=== PATIENT | male | born 1945 ===

== ENCOUNTER 2018-09-07 15:24 | Inpatient (IN) | payer MEDICARE, OTHER ==
--- OUTSIDE RECORDS SUMMARY | 2018-09-07 15:36 | XMS REPORT | Continuity of Care Document ---
:1945 Author Organization [facility] Care Team Providers Name Role Phone ASHLEY AYERS Primary Care Physician Allergies and Intolerances No Known Allergies Medications RxNorm Medication Dose Route Instructions Start End Status Date Date Amlodipine Oral 2.5 mg oral orally every Active day 2418 Cholecalciferol 1000 oral orally every Active unit day ( administer with meals) 91268 ferrous sulfate 325 mg oral orally every Active day (Ordered Dose: of ferrous sulfate) 5487 Hydrochlorothiazide 6.25 - oral orally every Active 12.5 mg day 17662 latanoprost 1 drp ophthalmic into the eye(s) Active (eye) every day (both eyes) 872664 Pravastatin Sodium 40 40 mg oral orally every Active MG Oral Tablet day 829876 Warfarin Sodium 5 MG 2.5 mg oral orally twice a Active Oral Tablet week (Friday and Friday) 784061 Warfarin Sodium 5 MG 5 mg oral orally 5 times Active Oral Tablet per week (Friday, Friday, , and Friday) Problems Code Code System Problem Name Start Date End Date Status 31581058 SNOMED-CT Spinal stenosis of lumbar region 2011 Active LUMBAR FUSION L4/L5 2011 Active 957535014 SNOMED-CT Deep venous thrombosis of lower 2005 Active extremity (disorder) 53408295 SNOMED-CT Hiatal hernia 1994 Active 12779492 SNOMED-CT Hypertensive disorder 1994 Active Procedures No data in the system Results Radiology Results Order: MRI LUMBAR W/O CONTRASTExam Completion Date:08/11/2018 13:145/10/2018 2:17 PM MR LUMBOSACRAL SPINE WITHOUT CONTRAST CLINICAL INFORMATION: Lumbar spine ankylosis,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 TECHNIQUE: Multiplanar multi-sequence MR imaging of the lumbosacral spine was performed without intravenous contrast. FINDINGS: All the lumbar vertebrae are well aligned. Hardware fixation of L4 and L5 vertebral bodies noted. Degenerative changes are noted in the form of marginal osteophytes at multiple levels. Endplate changes are noted with small Schmorl nodes especially at the lower end plate of L2 and L3 vertebral body. T12-L1 intervertebral disc is unremarkable. L1-L2 intervertebral disc is unremarkable. L2-3 intervertebral disc shows mild posterior disc bulge with facetal and ligamentum flavum hypertrophy causing mild canal narrowing and mild to moderate narrowing of bilateral neuroforamina. L3-L4 intervertebral disc shows mild posterior disc bulge with facetal and ligamentum flavum hypertrophy causing moderate to severe canal narrowing and moderate to severe narrowing of bilateral neuroforamina. L4-5 intervertebral disc is fixed. L5-S1 intervertebral disc level shows posterior disc bulge with facetal hypertrophy causing moderate canal narrowing and moderate to severe bilateral neuroforamina narrowing. Pre and paravertebral soft tissues are unremarkable. IMPRESSION: Findings are suggestive of status post fixation of L4 and L5 vertebral body with degenerative changes causing moderate to severe canal narrowing at L3-4 level and moderate canal narrowing at L5-S1 level. END OF IMPRESSION [facility] submits Radiology results to [facility] then provides those same results to [facility]. All results are available to [facility] and [facility] provider portal users. [facility] DICOM images are available to the [facility] provider portal users only. [facility] DICOM images are not available to the [facility] provider portal users. There is no current [facility] cross-[facility] functionality allowing images to be available through the [facility] to [facility] connectivity. Electronically signed By: Marco Bruner M.D. Read By: MARCO BRUNER Date: 08/11/2018 14:45 Social History Code Code System Social History Observation Description Dates Observed 049500535 SNOMED CT Current Smoking Status Never smoker UNK AdministrativeGender Sex Assigned At Unknown Vital Signs No data in the system Goals Section No data in the system Health Concerns No data in the systemEncounter Diagnosis Date Code Code System Diagnosis Status M54.5 ICD10 LOW BACK PAIN Active Advance Directives *RHIO - CONSENT IS YES Directive Type Effective Date Drill Sharpener Notes Supporting Document Name Address Phone No Directive Type 11/10/2014 9:51:46 Not Specified Not Specified Not Specified None No specified PM Family History No data in the system Functional Status No data in the system Immunizations No data in the system Medical Equipment Implants Implanted Date Implant Site [facility] 04/07/2011 titanium spinal implantsx4 lumbar Mental Status No data in the system Assessment and Plan Assessments No data in the systemPlan Of Treatment No data in the systemPending Tests No data in the system Hospital Discharge Instructions No data in the system Reason for Visit Reason for Visit MRI
--- OUTSIDE RECORDS SUMMARY | 2018-09-07 15:36 | XMS REPORT | Continuity of Care Document ---
:1945 External Reference #:[id number] Author Name Robinsonnora Aurelia Care Team Providers Name Role Phone Mare Marin NP Primary Care Physician Unavailable Payers Date Identification Numbers Payment Provider Subscriber Effective: Policy Number: [id number] Medicare Alexis Alexis 2009 PayID: [id number] [address] [place] [address] Expires: 2015 Policy Number: [id number] [employer] Alexis Coleacheshannon Group Number: [id number] PayID: [place] [address] Policy Number: [id number] Lifetime Benefit Solution Franchesca Alexis PayID: [id number] [address] [place] [address] Problems Active Problems Provider Date Lumbosacral stenosis Giovanna Medina M.D. Onset: 09/26/2015 Note: post surgery with residual right leg numbness Family History Date Family Member(s) Observation Comments General Diabetes General Congestive Heart Failure (CHF) Siblings 1 Social History Type Date Description Comments Sex Unknown Marital Status Occupation Retired Teacher [employer] ETOH Use Drinks Alcoholic Beverages Rarely Tobacco Use Start: Unknown Patient has never smoked Recreational Drug Use Denies Drug Use Smoking Status Reviewed: 08/24/18 Patient has never smoked Exercise Type/Frequency Exercises regularly Allergies, Adverse Reactions, Alerts Description No Known Drug Allergies Medications Active Medications SIG Qnty Indications Ordering Date Provider Amlodipine Besylate 1 po once daily Kimberley Chavarria 2.5mg Tablets Hydrochlorothiazide 1/2 by mouth Kimberley Chavarria 12.5mg Tablets once daily Latanoprost as directed Lluvia, 0.005% Solution MD Jessica Pravastatin Sodium 1 po qd Kimberley Chavarria Caryn 40mg Tablets Warfarin Sodium 1 po 6 days a Kimberley Chavarria 5mg Tablets week..2/12 mg on the 7th day Vitamin D3 High Potency 1 by mouth Unknown 1000Unit every day Capsules Nexium 1 by mouth Unknown 20mg Capsules DR every day Iron 65 mg every 2 Unknown 90(18Fe) mg Tablets days Vital Signs Date Vital Result Comment 08/24/2018 10:01am Height 68 inches 5'8" Weight 180.00 lb BP Systolic Sitting 120 mmHg BP Diastolic Sitting 60 mmHg Pain Level 4 BMI (Body Mass Index) 27.4 kg/m2 09/26/2015 1:04pm Height 68 inches 5'8" Weight 193.00 lb Heart Rate 60 /min BP Systolic Sitting 120 mmHg BP Diastolic Sitting 80 mmHg BMI (Body Mass Index) 29.3 kg/m2 Procedures Date Code Description Status 09/26/2015 44388 Nerve Conduction 05-06 Studies Completed 09/26/2015 81464 Needle Electromyography Each Extremity W/Related Completed Paraspinal Areas Encounters Type Date Location Provider Dx Diagnosis Office Visit 08/24/2018 Neurosurgery Shaq Salinas, M48.062 Spinal stenosis, 10:30a [facility] lumbar region with neurogenic claudication M51.36 Other intervertebral disc degeneration, lumbar region Office Visit 02/22/2011 Neurosurgery Julio Cesar Nichols 724.02 Spinal Stenosis, 10:00a [facility] M.D. Lumbar Region, W/O Neurogenic Claudication 724.6 Sacral Disorder Plan of Treatment Future Appointment(s):09/04/2018 3:00 pm - Crystal [facility]vel MD [facility]08/24/2018 - Shaq Salinas M.D.M48.062 Spinal stenosis, lumbar region with neurogenic claudicationNew Xrays:Spine Scoliosis Erect, Ordered: 08/24/18Spine Lumbosacral Bending Views Only 2 Or 3 Views, Ordered: 08/24/18CT Spine Lumbar W/O, Ordered: 08/24/18New Therapy:Physical NzjibflE52.36 Other intervertebral disc degeneration, lumbar regionNew Therapy: Physical TherapyFollow up:Please schedule follow up with Dr. Jovel for surgical consult
--- OUTSIDE RECORDS SUMMARY | 2018-09-07 15:36 | XMS REPORT | Continuity of Care Document ---
:1945 External Reference #:[id number] Author Name Cindy Melvin Care Team Providers Name Role Phone Mare Marin, CLOUD SOFTWARE ENGINEER Primary Care Physician Unavailable Payers Date Identification Numbers Payment Provider Subscriber Policy Number: [id number] Medicare Alexis Houstonermacher PayID: [id number] [address] [place] [address] Effective: 2009 Policy Number: [id number] Medicare Alexis Houstonermrg Expires: 2018 PayID: [id number] [address] [place] [address] Expires: 2015 Policy Number: [id number] [employer] Lee Fenstermacher Group Number: [id number] PayID: [place] [address] Policy Number: [id number] Lifetime Benefit Solution Franchesca Alexis PayID: EBSRM [address] [place] [address] Problems Active Problems Provider Date Lumbosacral stenosis [...] Use Denies Drug Use Smoking Status Reviewed: 08/28/18 Patient has never smoked Exercise Type/Frequency Exercises regularly Allergies, Adverse Reactions, Alerts Description No Known Drug Allergies Medications Active Medications SIG Qnty Indications Ordering Date Provider Amlodipine Besylate 1 po once daily Kimberley Chavarria Caryn 2.5mg Tablets Hydrochlorothiazide 1/2 by mouth Kimberley Chavarria 12.5mg Tablets once daily Latanoprost as directed Lluvia, 0.005% Solution MD Jessica Pravastatin Sodium 1 po qd Kimberley Chavarria Caryn 40mg Tablets Warfarin Sodium 1 po 6 days a Kimberley Chavarria Caryn 5mg Tablets week..2/12 mg on the 7th day Vitamin D3 High Potency 1 by mouth Unknown 1000Unit every day Capsules Nexium 1 by mouth Unknown 20mg Capsules DR every day Iron 65 mg every 2 Unknown 90(18Fe) mg Tablets days Vital Signs Date Vital Result Comment 08/28/2018 1:50pm Height 68 inches 5'8" Weight 180.00 lb BP Systolic Sitting 160 mmHg BP Diastolic Sitting 100 mmHg Pain Level 9 BMI (Body Mass Index) 27.4 kg/m2 08/24/2018 10:01am Height 68 inches 5'8" Weight 180.00 lb BP Systolic Sitting 120 mmHg BP Diastolic Sitting 60 mmHg Pain Level 4 BMI (Body Mass Index) 27.4 kg/m2 09/26/2015 1:04pm Height 68 inches 5'8" Weight 193.00 lb Heart Rate 60 /min BP Systolic Sitting 120 mmHg BP Diastolic Sitting 80 mmHg BMI (Body Mass Index) 29.3 kg/m2 Procedures Date Code Description Status 09/26/2015 20482 Nerve Conduction 05-06 Studies Completed 09/26/2015 45486 Needle Electromyography Each Extremity W/Related Completed Paraspinal Areas Encounters Type Date Location Provider Dx Diagnosis Office Visit 08/28/2018 Neurosurgery Vassilios M48.062 Spinal stenosis, 2:00p [facility] MD lumbar region with neurogenic claudication M51.36 Other intervertebral disc degeneration, lumbar region Office Visit 02/22/2011 Neurosurgery Julio Cesar Nichols 724.02 Spinal Stenosis, 10:00a [facility] M.D. Lumbar Region, W/O Neurogenic Claudication 724.6 Sacral Disorder Plan of Treatment Future Appointment(s):10/07/2018 3:00 pm - Crystal Jovel MD at [facility]08/28/2018 - Crystal Jovel, MDM48.062 Spinal stenosis, lumbar region with neurogenic claudicationReferral:Terrell Serra MD , Interventional Pain MedicFollow up:Rv in 1 pkutlM73.36 Other intervertebral disc degeneration, lumbar region
[2018-09-07] MEDS ORDERED: predniSONE TAB* 20 MG PO ONE (16:11)
[2018-09-07] MEDS ORDERED: Diazepam TAB(*) 5 MG PO ONE (16:11)
--- NOTE | 2018-09-07 16:48 | ED ---
Back Pain - HPI Summary HPI Summary: Patient complains of worsening of chronic back pain symptoms, stating he cannot stand or walk 2 days. Patient has Rx for tramadol which providing no relief. Patient of Dr. Romero. Denies acute trauma, fever, cough, sore throat, CV, SOB, N/V/D, abdominal pain, change in urine, change in BM. - History of Current Complaint Chief Complaint: EDBackInjuryPain Stated Complaint: BACK PAIN Time Seen by Provider: 09/07/18 15:40 Hx Obtained From: Patient Onset/Duration: Sudden Onset, Lasting Days Onset/Duration: Started Days Ago Timing: Constant Severity Initially: Severe Severity Currently: Severe Pain Intensity: 9 Pain Scale Used: 0-10 Numeric Character: Aching, Throbbing Aggravating Symptom(s): Movement, Walking Alleviating Symptom(s): Rest, Position Associated Signs And Symptoms: Positive: Negative - Allergies/Home Medications Allergies/Adverse Reactions: Allergies Allergy/AdvReac Type Severity Reaction Status Date / Time No Known Allergies Allergy Verified 09/07/18 15:33 Home Medications: Home Medications Amlodipine Besylate [Amlodipine 2.5 mg tab] 2.5 mg PO DAILY 09/07/18 [History Confirmed 09/07/18] Cholecalciferol (Vitamin D3) [D 1000] 1,000 unit PO DAILY 09/07/18 [History Confirmed 09/07/18] Esomeprazole Magnesium [Nexium 24Hr] 20 mg PO DAILY 09/07/18 [History Confirmed 09/07/18] Hydrochlorothiazide TAB* [Hydrodiuril TAB*] 12.5 mg PO DAILY 09/07/18 [History Confirmed 09/07/18] Iron,Carbonyl/Ascorbic Acid [Iron 100/C] 1 tab PO DAILY 09/07/18 [History Confirmed 09/07/18] Latanoprost 0.005% Eye Drop 1 drop BOTH EYES DAILY 09/07/18 [History Confirmed 09/07/18] Pravastatin Sodium 40 mg PO DAILY 09/07/18 [History Confirmed 09/07/18] Warfarin TAB(*) [Coumadin TAB(*)] 2.5 mg PO MOWEFRSA 09/07/18 [History Confirmed 09/07/18] Warfarin TAB(*) [Coumadin TAB(*)] 5 mg PO DAILY 09/07/18 [History Confirmed 06/23] PMH/Surg Hx/FS Hx/Imm Hx Endocrine/Hematology History: Reports: Hx Anticoagulant Therapy Cardiovascular History: Denies: Hx Pacemaker/ICD History: Denies: Hx Dialysis Sensory History: Denies: Hx Eye Prosthesis Opthamlomology History: Denies: Hx Legally Blind EENT History: Denies: Hx Deafness Neurological History: Denies: Hx Dementia Psychiatric History: Denies: Hx Autism - Surgical History Surgery Procedure, Year, and Place: LSP SURGERY Infectious Disease History: No Infectious Disease History: Denies: Traveled Outside the [place] in Last 30 Days - Family History Known Family History: Positive: Non-Contributory - Social History Alcohol Use: None Substance Use Type: Reports: None Smoking Status (MU): Never Smoked Tobacco Review of Systems Constitutional: Negative Eyes: Negative ENT: Negative Cardiovascular: Negative Respiratory: Negative Gastrointestinal: Negative Genitourinary: Negative Musculoskeletal: Other Skin: Negative Neurological: Negative Psychological: Normal All Other Systems Reviewed And Are Negative: Yes Physical Exam - Summary Physical Exam Summary: Tenderness to palpation over the left gluteus. PMS intact distally in left lower extremity. No masses, erythema, ecchymosis, deformity, swelling noted to lower back or left extremity. Triage Information Reviewed: Yes Vital Signs On Initial Exam: Initial Vitals Temp Pulse Resp BP Pulse Ox 98.2 F 59 16 176/103 98 09/07/18 15:29 09/07/18 15:29 09/07/18 15:29 09/07/18 15:29 09/07/18 15:29 Vital Signs Reviewed: Yes Appearance: Positive: Well-Appearing Skin: Positive: Warm Head/Face: Positive: Normal Head/Face Inspection Eyes: Positive: Normal Neck: Positive: Supple Respiratory/Lung Sounds: Positive: Clear to Auscultation Cardiovascular: Positive: Normal Abdomen Description: Positive: Nontender Musculoskeletal: Positive: Normal Neurological: Positive: Normal Psychiatric: Positive: Normal AVPU Assessment: Alert - [place] Coma Scale Best Eye Response: 4 - Spontaneous Best Motor Response: 6 - Obeys Commands Best Verbal Response: 5 - Oriented Coma Scale Total: 15 Diagnostics - Vital Signs Vital Signs Temp Pulse Resp BP Pulse Ox 09/07/18 15:29 98.2 F 59 16 176/103 98 - Laboratory Result Diagrams: 09/07/18 17:24 09/07/18 17:24 Lab Statement: Any lab studies that have been ordered have been reviewed, and results considered in the medical decision making process. Back Pain Course/Dx - Course Course Of Treatment: Patient complains of worsening of chronic back pain symptoms, stating he cannot stand or walk 2 days. Patient has Rx for tramadol which providing no relief. Patient of Dr. Romero. Denies acute trauma, fever, cough, sore throat, CV, SOB, N/V/D, abdominal pain, change in urine, change in BM. Physical exam:Tenderness to palpation over the left gluteus. PMS intact distally in left lower extremity. No masses, erythema, ecchymosis, deformity, swelling noted to lower back or left extremity. Vital signs within normal limits. Lumbar x-ray negative for acute process. Patient admitted to hospital as per recommendation of neurosurgery Dr. Salinas. - Diagnoses Provider Diagnoses: Back pain, Unable to ambulate Discharge - Sign-Out/Discharge Documenting (check all that apply): Patient Departure Patient Received Moderate/Deep Sedation with Procedure: No - Discharge Plan Condition: Fair Disposition: ADMITTED TO [facility] - Billing Disposition and Condition Condition: FAIR Disposition: Admitted to [facility]
[2018-09-07] MEDS ORDERED: oxyCODONE TAB* 5 MG TAB PO ONE (17:07)
[2018-09-07 17:34] LABS: ABS Lymphocytes 1.5 10^3/ul (1.0-4.8); ABS Monocytes 0.5 10^3/ul (0-0.8); ABS Neutrophils 5.8 10^3/ul (1.5-7.7); Eosinophil % 0.3 %; Hematocrit 44 % (42-52); Lymphocyte % 18.4 %; Mean Corpuscular HGB Conc 34 g/dL (31-36); Mean Corpuscular Hemoglobin 30 pg (27-31); Mean Corpuscular Volume 87 fL (80-94); Mean Platelet Volume 7.3 fL (7.4-10.4); Platelet Count 242 10^3/uL (150-450); Red Blood Count 5.01 10^6 /uL (4.18-5.48); Red Cell Distribution Width 14 % (10.5-15); White Blood Count 7.9 10^3/uL (3.5-10.8)
[2018-09-07 17:47] LABS: INR 1.86 (0.82-1.09)
[2018-09-07 17:51] LABS: Albumin 4.3 g/dL (3.2-5.2); Albumin/Globulin Ratio 1.2 (1-3); C Reactive Protein 4.39 mg/L (<8.01); Calcium 9.6 mg/dL (8.6-10.3); Globulin 3.5 g/dL (2-4); Potassium 3.9 mmol/L (3.5-5.0); Total Bilirubin 0.7 mg/dL (0.2-1.0); Total Protein 7.8 g/dL (6.4-8.9)
[2018-09-07] MEDS ORDERED: Morphine INJ* 2 MG/ML 1 ML SYRINGE (TWO MG - NEW SYRINGE VERSION) IV PRN (18:00)
[2018-09-07 18:32] LABS: BUN/Creatinine Ratio 14.7 (8-20); EGFR African American 74.5 (>60); EGFR Non-African American 61.5 (>60)
[2018-09-07] MEDS ORDERED: Enoxaparin(*) 80 MG/0.8 ML SYR SUBCUT SCH (19:00)
[2018-09-07] MEDS ORDERED: hydrALAZINE IV* 20 MG/ML VIAL IV SLOW PU PRN (19:04)
--- NOTE | 2018-09-07 20:28 | HP ---
CC: Dr. Hernandez * HISTORY AND PHYSICAL: DATE OF ADMISSION: 09/07/18 PRIMARY CARE PROVIDER: Dr. Hernandez. NEUROSURGEON: Dr. Jovel. CHIEF COMPLAINT: Low back pain. HISTORY OF PRESENT ILLNESS: Mr. Alexis is a 73-year-old male who has a known history of spinal stenosis who was seen by Dr. Jovel on 08/28/18 where he was evaluated for his increased abdominal pain. The patient was referred to Dr. Serra for pain management. Since the patient's appointment on 08/28/18, he has had progressive pain in his low back radiating down to his left leg. It has progressed to the point where he is now unable to get out of bed. Due to the fact that the pain has become so severe and he is unable to ambulate, the patient was brought to the emergency room for evaluation. The patient has a history of spinal fusion at L4-5 approximately 7 years ago. He initially did quite well. However, pain started to worsen in fall. While in the ER, Dr. Salinas, who was on-call, was contacted. He recommended the patient be admitted for pain control and evaluation in the hospital by Dr. Jovel. It is felt that he likely will need surgery this admission. PAST MEDICAL HISTORY: 1. Hypertension. 2. Hyperlipidemia. 3. GERD. 4. DVT x2, on lifelong Coumadin. 5. BPH. PAST SURGICAL HISTORY: 1. Lumbar fusion. 2. Cholecystectomy. MEDICATIONS: 1. Vitamin D 1000 units p.o. daily. 2. Iron - vitamin C tablet 1 tab p.o. daily. 3. Coumadin 5 mg all days of the week in addition to 2.5 mg p.o. Friday, Friday, Friday and Friday. 4. Amlodipine 2.5 mg p.o. daily. 5. Nexium 20 mg p.o. daily. 6. Hydrochlorothiazide 12.5 mg p.o. daily. 7. Latanoprost 1 drop to both eyes daily. 8. Pravastatin 40 mg p.o. daily. ALLERGIES: No known drug allergies. FAMILY HISTORY: Mom at age of 82 with CHF. Dad at the age of 82 of CHF. He also had diabetes. SOCIAL HISTORY: The patient is a non-smoker. He drinks alcohol on a rare occasion. 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 He is . He has 2 children. His and his daughter would be his health care proxy. REVIEW OF SYSTEMS: A complete 11 system review of systems is obtained. Pertinent positives and negatives are as per HPI and otherwise negative. PHYSICAL EXAMINATION GENERAL: The patient is a well-developed elderly male who appears younger than his stated age, lying flat in the bed, in no acute distress. VITAL SIGNS: Blood pressure 165/111, pulse 56, respirations 18, temp 97.5, O2 sat 97% on room air. HEENT: Pupils are equal, round. Extraocular muscles are intact. Oropharynx is clear. Oral mucosa is moist. There is no submandibular, cervical or supraclavicular adenopathy. PULMONARY: Lungs are clear to auscultation anteriorly. CARDIAC: Normal S1, S2. Regular rate and rhythm. I did not appreciate any murmurs. There is no lower extremity edema. ABDOMEN: Bowel sounds are present. Abdomen is soft, nontender, nondistended. MUSCULOSKELETAL: Range of motion is not tested today due to pain. NEURO: Cranial nerves II through XII are grossly intact. Sensation is intact to light touch throughout. Strength is normal in the upper extremities, slight weakness in the left lower extremity. PSYCH: The patient is alert. He is oriented x3. Affect appears appropriate. DIAGNOSTIC STUDIES/LAB DATA: WBC 7.9, hemoglobin 15.0, hematocrit 44, platelets 242, INR 1.86. Sodium 138, potassium 3.9, chloride of 103, CO2 28, BUN 17, creatinine 1.16, glucose 116, lactic acid 1.5, calcium 9.6, bilirubin 0.7, AST 21, ALT 16, alk phos 83, CRP 4.39, albumin 4.3. Lumbar spine x-ray reveals stable appearance of the post fusion L4-L5 level. There is diffuse degenerative spondylosis and facet joint osteoarthritis. ASSESSMENT AND PLAN: Mr. Alexis is a 73-year-old male with a history of intractable low back pain, now with the inability to ambulate who is being admitted to the hospital for pain control and evaluation by Dr. Jovel for likely lumbar spine surgery this week. 1. Intractable back pain. At this point, the patient is fairly comfortable lying flat in the stretcher. He is unable to however move without significant difficulty. The patient will have p.r.n. Tylenol and oxycodone as well as IV morphine for severe pain. A consultation has been placed to Dr. Jovel. Dr. Salinas has already spoken to Dr. Jovel today. The patient did receive a dose of prednisone in the emergency room. 2. Hypertension. The patient's blood pressure is under poor control at this time. I suspect this may be related to pain. The patient for now will continue on his usual doses of amlodipine, and hydrochlorothiazide. I will add p.r.n. hydralazine for systolic blood pressures greater than 170. 3. Hyperlipidemia. Continue statin. 4. Deep vein thrombosis x2. The patient has been placed on lifelong Coumadin therapy. His INR is subtherapeutic 1.86. As there is likelihood that the patient will go to the OR this week, I will hold his Coumadin and initiate Lovenox 80 mg subcutaneous twice daily. 5. DVT prophylaxis. According to the Adult Thrombosis Prophylaxis Risk Factor Assessment Guide, the patient has a total risk factor score of 5, making him the highest risk. Therapeutic dose Lovenox is being ordered while the patient is off his Coumadin given his history of recurrent deep vein thromboses and this will act as his DVT prophylaxis. Code status is full. TIME SPENT: 55 minutes was spent admitting this patient. [id number]/[facility] #: [id number] BERNIE
[2018-09-07] MEDS: amLODIPine TAB* 5 MG PO SCH (21:33)
[2018-09-07] MEDS: Docusate CAP* 100 MG PO PRN (21:33)
[2018-09-07] MEDS: Hydrochlorothiazide TAB* 25 MG PO SCH (21:36)
[2018-09-07] MEDS: Pantoprazole TAB * 40 MG TAB PO SCH (21:36)
[2018-09-07] MEDS: Atorvastatin* 10 MG TAB PO SCH (21:37)
[2018-09-07] MEDS: Latanoprost 0.005%* 2.5 ml BTL BOTH EYES SCH (21:38)
[2018-09-07] MEDS: Enoxaparin(*) 80 MG/0.8 ML SYR SUBCUT SCH (21:39)
[2018-09-07] MEDS: oxyCODONE TAB* 5 MG TAB PO PRN (21:49)
[2018-09-08] MEDS: oxyCODONE TAB* 5 MG TAB PO PRN ×4 (04:12→20:46)
[2018-09-08 05:14] LABS: INR 1.96 (0.82-1.09)
[2018-09-08] MEDS: Enoxaparin(*) 80 MG/0.8 ML SYR SUBCUT SCH ×2 (10:53→20:50)
[2018-09-08] MEDS: Ketorolac INJ* 15 MG/ML 1 ML VIAL IV PUSH PRN ×2 (13:25→22:56)
--- NOTE | 2018-09-08 14:34 | PN ---
Subjective Date of Service: 09/08/18 Interval History: Mr. Alexis is not feeling any better this morning. He is still having significant left back and leg pain, occasionally radiating all the way down to his big toe. There is some associated numbness during the radiation. Pain is tolerable during my exam, but he has not been able to get OOB d/t this pain. He denies CP, SOB, N/V. Nursing reports continued pain with current pain medications. Family History: Unchanged from Admission Social History: Unchanged from Admission Past Medical History: Unchanged from Admission Objective Active Medications: Amlodipine Besylate (Norvasc Tab*) 2.5 mg PO BEDTIME SHRUTHI Atorvastatin Calcium (Lipitor*) 10 mg PO BEDTIME SHRUTHI Docusate Sodium (Colace Cap*) 100 mg PO BID PRN CONSTIPATION Enoxaparin Sodium (Lovenox(*)) 80 mg SUBCUT Q12HR SHRUTHI Hydralazine HCl (Apresoline Iv*) 10 mg IV SLOW PU Q6H PRN sbp>170 Hydrochlorothiazide (Hydrodiuril Tab*) 12.5 mg PO BEDTIME SHRUTHI Ketorolac Tromethamine (Toradol Inj*) 15 mg IV PUSH Q6H PRN PAIN Latanoprost (Xalatan 0.005%*) 1 drop BOTH EYES BEDTIME SHRUTHI Morphine Sulfate (Morphine Inj (Syringe))*) 2 mg IV Q4H PRN PAIN Oxycodone HCl (Roxycodone Tab*) 5 mg PO Q4H PRN PAIN Pantoprazole Sodium (Protonix Tab*) 40 mg PO BEDTIME SHRUTHI Vital Signs - 8 hr 09/08/18 09/08/18 09/08/18 07:38 08:00 08:39 Temperature 99.0 F Pulse Rate 68 Respiratory 18 18 18 Rate Blood Pressure 126/81 (mmHg) O2 Sat by Pulse 98 Oximetry 09/08/18 09/08/18 09/08/18 10:52 11:27 12:37 Temperature 98.0 F Pulse Rate 64 Respiratory 18 18 18 Rate Blood Pressure 144/91 (mmHg) O2 Sat by Pulse 96 Oximetry Oxygen Devices in Use Now: None Appearance: Elderly male laying in bed in NAD, but in obvious pain Eyes: No Scleral Icterus Ears/Nose/Mouth/Throat: Mucous Membranes Moist Neck: NL Appearance and Movements; NL JVP, Trachea Midline Respiratory: Symmetrical Chest Expansion and Respiratory Effort, Clear to Auscultation Cardiovascular: NL Sounds; No Murmurs; No JVD, RRR Abdominal: NL Sounds; No Tenderness; No Distention Extremities: No Edema Skin: No Rash or Ulcers Neurological: Alert and Oriented x 3, NL Sensation Lines/Tubes/Other Access: Clean, Dry and Intact Peripheral IV Nutrition: Taking PO's Result Diagrams: 09/07/18 17:24 09/07/18 17:24 Assess/Plan/Problems-Billing Assessment: Mr. 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 - Patient Problems (1) Left low back pain Code(s): M54.5 - LOW BACK PAIN Comment: - Has been previously evaluated by Dr. Jovel who recommended attempting pain management prior to pursing any surgical intervention - One dose of prednisone given in the ED - Appreciate Neurosurgery consult - Continue Toradol, morphine, oxy (2) Hypertension Code(s): I10 - ESSENTIAL (PRIMARY) HYPERTENSION Comment: - Slightly hypertensive, SBP 120-140s; likely r/t pain - Continue amlodipine, HCTZ (3) GERD (gastroesophageal reflux disease) Code(s): K21.9 - GASTRO-ESOPHAGEAL REFLUX DISEASE WITHOUT ESOPHAGITIS Comment : - Continue pantoprazole (4) Hyperlipidemia Code(s): E78.5 - HYPERLIPIDEMIA, UNSPECIFIED Comment: - Continue atorvastatin (5) History of DVT (deep vein thrombosis) Code(s): Z86.718 - PERSONAL HISTORY OF OTHER VENOUS THROMBOSIS AND EMBOLISM Comment: - x2, unprovoked and on lifelong anticoagulation - Coumadin on hold d/t possible need for intervention - Continue therapeutic Lovenox (6) DVT prophylaxis Code(s): Z29.9 - ENCOUNTER FOR PROPHYLACTIC MEASURES, UNSPECIFIED Comment: - Lovenox (7) Full code status Code(s): Z78.9 - OTHER SPECIFIED HEALTH STATUS Comment: Status and Disposition: Inpatient. Anticipate d/c home when medically stable. Attending: Yvette Schmitz
--- NOTE | 2018-09-08 17:50 | CONSULT ---
Consult Consult: Date of Admission : 09/07/18 Date of consult: 09/08/18 reason for Consult: Intractable back pain with radiculopathy 73 y/o male with previous history of L4/L5 fusion x 7 years, complains increasing low back pain with lower extremity radicular x 7-8 weeks. He was previously seen in neurosurgery clinic 08/28/18 at that time was recommended to follow up with pain for possible injections. He reports that his became so intense the previous day his was unable to stand, walk or extend his left leg with out extreme pain. He denies issues with urinary or bowel incontinence, he does report numbness at the top of left foot. Patient indicates the majority of his pain is localized in the left buttock and radiates down the back of the leg. The is increased with standing, walking and sitting on the left side. On admission he reports that his pain was 10/10, but now has improved to 4/10 after receiving pain medications and steroids. PMH: DVT HLD HTN Medications Amlodipine 2.5 mg PO QHS Atrovastatin 10 mg PO Q HS Coumadin 5 mg 5 days a week, 2 mg 2 days week surgical Histroy L4/L5 Fusion Gall Bladder removed Social History: Denies Tobacco use Denies ETOH use Denies Drug use Objective: Vital Signs - 8 hr 09/08/18 09/08/18 09/08/18 11:27 12:37 16:47 Temperature 98.0 F Pulse Rate 64 Respiratory 18 18 18 Rate Blood Pressure 144/91 (mmHg) O2 Sat by Pulse 96 Oximetry 09/08/18 17:49 Temperature Pulse Rate Respiratory Rate Blood Pressure 138/84 (mmHg) O2 Sat by Pulse Oximetry Physical Exam: General : patient laying in bed with NAD Neuro: GCS 15, A&O x 3, CN II - XII grossly intact. decrease sensation in top of left foot. Motor strength 5/5 in all extremities, Positive Kemps test on the left, decrease ROM with flexion and extension,SI joint test are negative. X rays completed shows lumbar fusion of L4/L5, hardware intact appropriately Recent CT scan demonstrates fusion of L4/L5 without compromise of hardware. Recent MRI does not show significant central, left fora canal stenosis, there is left lateral recess and foraminal stenosis at L5/S1. Assessment: 73 y/o male with history of fusion of L4/L5 complains of acute increased left lower extremity radicular pain, increased with standing and walking, neurologically intact. He has responded well to the pain medication and steroid therapy. At this time time surgical intervention not indicated. Plan: 1) Have Patient follow up with pain management for injections as originally planned 2) Patient will possible need to stop anticoagulation medication for injections will need recommendations for medicine. 3) If pain not improved with injections patient can follow up in neurosurgery clinic. 4) This case has been discussed with Dr Jovel, who is agrees with plan. 5) As per pain management patient should be off Lovenox for 24 hours, needs INR to 1, they will attempt injections on patient this Friday.
[2018-09-08] MEDS: Docusate CAP* 100 MG PO PRN (20:45)
[2018-09-08] MEDS: amLODIPine TAB* 5 MG PO SCH (20:45)
[2018-09-08] MEDS: Pantoprazole TAB * 40 MG TAB PO SCH (20:46)
[2018-09-08] MEDS: Hydrochlorothiazide TAB* 25 MG PO SCH (20:47)
[2018-09-08] MEDS: Latanoprost 0.005%* 2.5 ml BTL BOTH EYES SCH (20:49)
[2018-09-08] MEDS: Atorvastatin* 10 MG TAB PO SCH (20:49)
[2018-09-09] MEDS: oxyCODONE TAB* 5 MG TAB PO PRN ×5 (03:17→20:46)
[2018-09-09] MEDS: Ketorolac INJ* 15 MG/ML 1 ML VIAL IV PUSH PRN ×3 (05:13→23:47)
[2018-09-09] MEDS: Enoxaparin(*) 80 MG/0.8 ML SYR SUBCUT SCH (08:23)
[2018-09-09] MEDS: Docusate CAP* 100 MG PO PRN (08:23)
[2018-09-09 08:26] LABS: INR 1.87 (0.82-1.09)
[2018-09-09] MEDS ORDERED: Senna TAB PO PRN (11:40)
[2018-09-09] MEDS ORDERED: Magnesium Hydroxide LIQ* 30 ML UDC PO PRN (11:40)
[2018-09-09] MEDS ORDERED: Polyethylene Glycol 3350* 17 GM PACKET PO PRN (11:40)
[2018-09-09] MEDS ORDERED: Phytonadione Oral Solution* 5 MG/25 ML UDC PO ONE ×2 (15:40→22:31)
--- NOTE | 2018-09-09 16:12 | PN ---
Subjective Date of Service: 09/09/18 Interval History: Mr. Alexis is feeling a bit better this morning. He was able to ambulate to the bathroom, but had significant pain once back in bed and has not been able to get OOB since that time. Pain is still in left lower back, occasionally radiating down to his great toe. Denies CP, SOB, N/V. Wants to avoid taking narcotics, but Toradol has been working well for him. He has bridged from Lovenox to Coumadin in the past at home and is comfortable with the process. Nursing requesting bowel regimen. Family History: Unchanged from Admission Social History: Unchanged from Admission Past Medical History: Unchanged from Admission Objective Active Medications: Amlodipine Besylate (Norvasc Tab*) 2.5 mg PO BEDTIME SHRUTHI Atorvastatin Calcium (Lipitor*) 10 mg PO BEDTIME SHRUTHI Docusate Sodium (Colace Cap*) 100 mg PO BID PRN CONSTIPATION Hydralazine HCl (Apresoline Iv*) 10 mg IV SLOW PU Q6H PRN sbp>170 Hydrochlorothiazide (Hydrodiuril Tab*) 12.5 mg PO BEDTIME SHRUTHI Ketorolac Tromethamine (Toradol Inj*) 15 mg IV PUSH Q6H PRN PAIN Latanoprost (Xalatan 0.005%*) 1 drop BOTH EYES BEDTIME SHRUTHI Magnesium Hydroxide (Milk Of Magnesia Liq*) 30 ml PO BID PRN CONSTIPATION Morphine Sulfate (Morphine Inj (Syringe))*) 2 mg IV Q4H PRN PAIN Oxycodone HCl (Roxycodone Tab*) 5 mg PO Q4H PRN PAIN Pantoprazole Sodium (Protonix Tab*) 40 mg PO BEDTIME SHRUTHI Polyethylene Glycol/Electrolytes (Miralax*) 17 gm PO DAILY PRN CONSTIPATION Senna (Senokot Tab*) 1 tab PO BEDTIME PRN CONSTIPATION Vital Signs - 8 hr 09/09/18 09/09/18 09/09/18 08:23 10:30 11:46 Temperature 98.1 F Pulse Rate 61 Respiratory 16 16 15 Rate Blood Pressure 140/80 (mmHg) O2 Sat by Pulse 98 Oximetry 09/09/18 09/09/18 12:27 15:18 Temperature 97.6 F Pulse Rate 59 Respiratory 16 17 Rate Blood Pressure 145/83 (mmHg) O2 Sat by Pulse 97 Oximetry Oxygen Devices in Use Now: None Appearance: Elderly male laying in bed in NAD, hold left lower back Eyes: No Scleral Icterus Ears/Nose/Mouth/Throat: Mucous Membranes Moist Neck: NL Appearance and Movements; NL JVP, Trachea Midline Respiratory: Symmetrical Chest Expansion and Respiratory Effort, Clear to Auscultation Cardiovascular: NL Sounds; No Murmurs; No JVD, RRR Abdominal: NL Sounds; No Tenderness; No Distention Extremities: No Edema Skin: No Rash or Ulcers Neurological: Alert and Oriented x 3, - - Decreased sensation to LLE below the knee Lines/Tubes/Other Access: Clean, Dry and Intact Peripheral IV Nutrition: Taking PO's Result Diagrams: 09/07/18 17:24 09/07/18 17:24 Assess/Plan/Problems-Billing Assessment: Mr. 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 - Patient Problems (1) Left low back pain Code(s): M54.5 - LOW BACK PAIN Comment: - Has been previously evaluated by Dr. Jovel who recommended attempting pain management prior to pursing any surgical intervention - One dose of prednisone given in the ED - Appreciate Neurosurgery consult; no surgery indicated at this time, but will consider surgery if he fails pain management - Spoke with Dr. Serra this morning; injections can be done inpatient, but INR needs to normalize and he needs to be off Lovenox for 24 hours prior - Stop Lovenox and give vitamin K x1 now, recheck INR tonight; if INR is still elevated, he should get an additional dose of vit K; ideally INR will normalize by tomorrow morning and last dose of Lovenox was 09/09/18 @ 0900, so injections would be possible tomorrow - Continue Toradol, morphine, oxy (2) Hypertension Code(s): I10 - ESSENTIAL (PRIMARY) HYPERTENSION Comment: - Slightly hypertensive, SBP 120-140s; likely r/t pain - Continue amlodipine, HCTZ (3) GERD (gastroesophageal reflux disease) Code(s): K21.9 - GASTRO-ESOPHAGEAL REFLUX DISEASE WITHOUT ESOPHAGITIS Comment : - Continue pantoprazole (4) Hyperlipidemia Code(s): E78.5 - HYPERLIPIDEMIA, UNSPECIFIED Comment: - Continue atorvastatin (5) History of DVT (deep vein thrombosis) Code(s): Z86.718 - PERSONAL HISTORY OF OTHER VENOUS THROMBOSIS AND EMBOLISM Comment: - x2, unprovoked and on lifelong anticoagulation - Coumadin on hold d/t possible need for intervention - Lovenox stopped for likely injections tomorrow (6) DVT prophylaxis Code(s): Z29.9 - ENCOUNTER FOR PROPHYLACTIC MEASURES, UNSPECIFIED Comment: - SCDs (7) Full code status Code(s): Z78.9 - OTHER SPECIFIED HEALTH STATUS Comment: Status and Disposition: Inpatient. Anticipate d/c home when medically stable. Attending: Yvette Schmitz
[2018-09-09] MEDS: Atorvastatin* 10 MG TAB PO SCH (20:44)
[2018-09-09] MEDS: amLODIPine TAB* 5 MG PO SCH (20:44)
[2018-09-09] MEDS: Pantoprazole TAB * 40 MG TAB PO SCH (20:46)
[2018-09-09] MEDS: Hydrochlorothiazide TAB* 25 MG PO SCH (20:46)
[2018-09-09 21:01] LABS: INR 1.68 (0.82-1.09)
[2018-09-09] MEDS: Latanoprost 0.005%* 2.5 ml BTL BOTH EYES SCH (22:54)
[2018-09-10] MEDS: oxyCODONE TAB* 5 MG TAB PO PRN ×5 (00:27→23:08)
[2018-09-10 05:57] LABS: INR 1.33 (0.82-1.09)
[2018-09-10] MEDS: Ketorolac INJ* 15 MG/ML 1 ML VIAL IV PUSH PRN ×2 (06:14→20:26)
[2018-09-10] MEDS ORDERED: PROCHLORPERAZINE INJ 5 MG/ML 2 ML VIAL IV PRN (13:55)
[2018-09-10] MEDS ORDERED: Ondansetron INJ* 2 MG/ML VIAL IV PRN (13:55)
--- NOTE | 2018-09-10 17:10 | PN ---
Subjective Date of Service: 09/10/18 Interval History: Pt is feeling frustrated that no clear plan has been made for the ultimate care of his back pain. He states in general he has had some improvement in his pain but he still has severe back pain just after ambulating 6feet to the bathroom and 6feet back. Even at rest the patient has intermittent pain down to his L 1st toe. Family History: Unchanged from Admission Social History: Unchanged from Admission Past Medical History: Unchanged from Admission Objective Active Medications: Amlodipine Besylate (Norvasc Tab*) 2.5 mg PO BEDTIME SHRTUHI Last Admin: 09/09/18 20:44 Dose: 2.5 mg Atorvastatin Calcium (Lipitor*) 10 mg PO BEDTIME SHRUTHI Last Admin: 09/09/18 20:44 Dose: 10 mg Docusate Sodium (Colace Cap*) 100 mg PO BID PRN PRN Reason: CONSTIPATION Last Admin: 09/09/18 08:23 Dose: 100 mg Hydralazine HCl (Apresoline Iv*) 10 mg IV SLOW PU Q6H PRN PRN Reason: sbp>170 Hydrochlorothiazide (Hydrodiuril Tab*) 12.5 mg PO BEDTIME SHRUTHI Last Admin: 09/09/18 20:46 Dose: 12.5 mg Ketorolac Tromethamine (Toradol Inj*) 15 mg IV PUSH Q6H PRN PRN Reason: PAIN Last Admin: 09/10/18 06:14 Dose: 15 mg Latanoprost (Xalatan 0.005%*) 1 drop BOTH EYES BEDTIME SHRUTHI Last Admin: 09/09/18 22:54 Dose: 1 drop Magnesium Hydroxide (Milk Of Magnesia Liq*) 30 ml PO BID PRN PRN Reason: CONSTIPATION Morphine Sulfate (Morphine Inj (Syringe))*) 2 mg IV Q4H PRN PRN Reason: PAIN Ondansetron HCl (Zofran Inj*) 4 mg IV Q6H PRN PRN Reason: NAUSEA Last Admin: 09/10/18 14:20 Dose: 4 mg Oxycodone HCl (Roxycodone Tab*) 10 mg PO Q4H PRN PRN Reason: PAIN Last Admin: 09/10/18 07:53 Dose: 10 mg Pantoprazole Sodium (Protonix Tab*) 40 mg PO BEDTIME SHRUTHI Last Admin: 09/09/18 20:46 Dose: 40 mg Polyethylene Glycol/Electrolytes (Miralax*) 17 gm PO DAILY PRN PRN Reason: CONSTIPATION Prochlorperazine Edisylate (Compazine Inj*) 5 mg IV Q6H PRN PRN Reason: NAUSEA/VOMITING Senna (Senokot Tab*) 1 tab PO BEDTIME PRN PRN Reason: CONSTIPATION Vital Signs - 8 hr 09/10/18 09/10/18 11:33 15:25 Temperature 98.2 F 98.4 F Pulse Rate 60 63 Respiratory 16 16 Rate Blood Pressure 134/79 158/87 (mmHg) O2 Sat by Pulse 100 99 Oximetry Oxygen Devices in Use Now: None Appearance: Elderly male who appears younger than his stated age, lying in bed, NAD Eyes: No Scleral Icterus Ears/Nose/Mouth/Throat: Mucous Membranes Moist Respiratory: Symmetrical Chest Expansion and Respiratory Effort, Clear to Auscultation - anteriorly Cardiovascular: NL Sounds; No Murmurs; No JVD, RRR, No Edema Abdominal: NL Sounds; No Tenderness; No Distention Extremities: No Clubbing, Cyanosis Skin: No Nodules or Sclerosis Neurological: Alert and Oriented x 3, NL Muscle Strength and Tone Result Diagrams: 09/07/18 17:24 09/07/18 17:24 Microbiology and Other Data: Microbiology 09/07/18 17:45 Aerobic Blood Culture - Preliminary Blood Venous Blood MRSA/MSSA (PCR) - Final Mrsa Negative S.aureus Negative Assess/Plan/Problems-Billing Mr. 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 - Patient Problems (1) Left low back pain Current Visit: Yes Status: Acute Code(s): M54.5 - LOW BACK PAIN SNOMED Code(s): 527952825 Comment: INR still mildly elevated. Will repeat INR tomorrow AM 0500. He is still off lovenox as a lumbar injection is anticipated. Continue prn toradol, oxycodone and morphine. Will need to determine plan tomorrow AM on when the injection will be and how long it will be before an anticipated improvement could be seen. (2) History of DVT (deep vein thrombosis) Current Visit: Yes Status: Acute Code(s): Z86.718 - PERSONAL HISTORY OF OTHER VENOUS THROMBOSIS AND EMBOLISM SNOMED Code(s): 139196837 Comment: The patient has had 2 unprovoked DVTs and is on lifelong anticoagulation. The patient anticipates going back on coumadin after the injection. (3) Hypertension Current Visit: Yes Status: Acute Code(s): I10 - ESSENTIAL (PRIMARY) HYPERTENSION SNOMED Code(s): 30876403 Comment: BP is under fair control. Continue amlodipine but increase to 5mg daily and HCTZ. (4) Hyperlipidemia Current Visit: Yes Status: Acute Code(s): E78.5 - HYPERLIPIDEMIA, UNSPECIFIED SNOMED Code(s): 04701365 Comment: Continue atorvastatin (5) GERD (gastroesophageal reflux disease) Current Visit: Yes Status: Acute Code(s): K21.9 - GASTRO-ESOPHAGEAL REFLUX DISEASE WITHOUT ESOPHAGITIS SNOMED Code(s): 569705269 Comment: Continue protonix. (6) DVT prophylaxis Current Visit: Yes Status: Acute Code(s): Z29.9 - ENCOUNTER FOR PROPHYLACTIC MEASURES, UNSPECIFIED SNOMED Code(s): 251296041 Comment: SCDs (7) Full code status Current Visit: Yes Status: Acute Code(s): Z78.9 - OTHER SPECIFIED HEALTH STATUS SNOMED Code(s): 979632094 Comment: Status and Disposition: .
[2018-09-10] MEDS ORDERED: amLODIPine TAB* 5 MG PO SCH (21:00)
[2018-09-10] MEDS: Pantoprazole TAB * 40 MG TAB PO SCH (21:35)
[2018-09-10] MEDS: Atorvastatin* 10 MG TAB PO SCH (21:36)
[2018-09-10] MEDS: Hydrochlorothiazide TAB* 25 MG PO SCH (21:36)
[2018-09-10] MEDS: Latanoprost 0.005%* 2.5 ml BTL BOTH EYES SCH (21:38)
[2018-09-11] MEDS: oxyCODONE TAB* 5 MG TAB PO PRN ×3 (00:53→11:23)
[2018-09-11] MEDS: Ketorolac INJ* 15 MG/ML 1 ML VIAL IV PUSH PRN (05:26)
[2018-09-11 07:04] LABS: INR 1.07 (0.82-1.09)
--- NOTE | 2018-09-11 09:02 | PN ---
Subjective Date of Service: 09/11/18 Interval History: Pt is feeling ok this AM. He woke up in the middle of the night again with excruciating back pain. He is anxious to learn if he can get the lumbar injection done today. Family History: Unchanged from Admission Social History: Unchanged from Admission Past Medical History: Unchanged from Admission Objective Active Medications: Amlodipine Besylate (Norvasc Tab*) 5 mg PO BEDTIME SHRUTHI Last Admin: 09/10/18 21:36 Dose: 5 mg Atorvastatin Calcium (Lipitor*) 10 mg PO BEDTIME SHRUTHI Last Admin: 09/10/18 21:36 Dose: 10 mg Docusate Sodium (Colace Cap*) 100 mg PO BID PRN PRN Reason: CONSTIPATION Last Admin: 09/09/18 08:23 Dose: 100 mg Hydralazine HCl (Apresoline Iv*) 10 mg IV SLOW PU Q6H PRN PRN Reason: sbp>170 Hydrochlorothiazide (Hydrodiuril Tab*) 12.5 mg PO BEDTIME [facility] Last Admin: 09/10/18 21:36 Dose: 12.5 mg Latanoprost (Xalatan 0.005%*) 1 drop BOTH EYES BEDTIME SHRUTHI Last Admin: 09/10/18 21:38 Dose: 1 drop Magnesium Hydroxide (Milk Of Magnunique Liq*) 30 ml PO BID PRN PRN Reason: CONSTIPATION Morphine Sulfate (Morphine Inj (Syringe))*) 2 mg IV Q4H PRN PRN Reason: PAIN Ondansetron HCl (Zofran Inj*) 4 mg IV Q6H PRN PRN Reason: NAUSEA Last Admin: 09/10/18 14:20 Dose: 4 mg Oxycodone HCl (Roxycodone Tab*) 10 mg PO Q4H PRN PRN Reason: PAIN Last Admin: 09/11/18 05:25 Dose: 5 mg Pantoprazole Sodium (Protonix Tab*) 40 mg PO BEDTIME SHRUTHI Last Admin: 09/10/18 21:35 Dose: 40 mg Polyethylene Glycol/Electrolytes (Miralax*) 17 gm PO DAILY PRN PRN Reason: CONSTIPATION Prochlorperazine Edisylate (Compazine Inj*) 5 mg IV Q6H PRN PRN Reason: NAUSEA/VOMITING Senna (Senokot Tab*) 1 tab PO BEDTIME PRN PRN Reason: CONSTIPATION Vital Signs - 8 hr 06/07/19 06/07/19 06/07/19 01:52 03:12 05:25 Temperature 98.3 F Pulse Rate 62 Respiratory 18 17 20 Rate Blood Pressure 135/82 (mmHg) O2 Sat by Pulse 94 Oximetry 09/11/18 09/11/18 09/11/18 06:25 07:50 08:00 Temperature 98.6 F Pulse Rate 56 Respiratory 18 17 17 Rate Blood Pressure 129/77 (mmHg) O2 Sat by Pulse 97 Oximetry 09/11/18 08:14 Temperature Pulse Rate Respiratory 17 Rate Blood Pressure (mmHg) O2 Sat by Pulse Oximetry Oxygen Devices in Use Now: None Appearance: Elderly male sitting up in bed, NAD Eyes: No Scleral Icterus Ears/Nose/Mouth/Throat: Mucous Membranes Moist Respiratory: Symmetrical Chest Expansion and Respiratory Effort, Clear to Auscultation Cardiovascular: NL Sounds; No Murmurs; No JVD, RRR, No Edema Abdominal: NL Sounds; No Tenderness; No Distention Extremities: No Clubbing, Cyanosis Skin: No Nodules or Sclerosis Neurological: Alert and Oriented x 3 Result Diagrams: 09/07/18 17:24 09/07/18 17:24 Microbiology and Other Data: Microbiology 09/07/18 17:45 Aerobic Blood Culture - Preliminary Blood Venous Blood MRSA/MSSA (PCR) - Final Mrsa Negative S.aureus Negative Assess/Plan/Problems-Billing Mr. 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 - Patient Problems (1) Left low back pain Current Visit: Yes Status: Acute Code(s): M54.5 - LOW BACK PAIN SNOMED Code(s): 620925004 Comment: INR down to 1.07 today. I spoke with Dr. Reaves who will look at her schedule and plan to do the injection today. Continue toradol, oxycodone and morphine as needed. (2) History of DVT (deep vein thrombosis) Current Visit: Yes Status: Acute Code(s): Z86.718 - PERSONAL HISTORY OF OTHER VENOUS THROMBOSIS AND EMBOLISM SNOMED Code(s): 335855030 Comment: The patient has had 2 unprovoked DVTs and is on lifelong anticoagulation. The patient anticipates going back on lovenox bridging to coumadin after the injection. (3) Hypertension Current Visit: Yes Status: Acute Code(s): I10 - ESSENTIAL (PRIMARY) HYPERTENSION SNOMED Code(s): 44425503 Comment: BP is under better control with the increased amlodipine at bedtime. Continue HCTZ. (4) Hyperlipidemia Current Visit: Yes Status: Acute Code(s): E78.5 - HYPERLIPIDEMIA, UNSPECIFIED SNOMED Code(s): 11820388 Comment: Continue atorvastatin (5) GERD (gastroesophageal reflux disease) Current Visit: Yes Status: Acute Code(s): K21.9 - GASTRO-ESOPHAGEAL REFLUX DISEASE WITHOUT ESOPHAGITIS SNOMED Code(s): 322030123 Comment: Continue protonix. (6) DVT prophylaxis Current Visit: Yes Status: Acute Code(s): Z29.9 - ENCOUNTER FOR PROPHYLACTIC MEASURES, UNSPECIFIED SNOMED Code(s): 184830697 Comment: SCDs (7) Full code status Current Visit: Yes Status: Acute Code(s): Z78.9 - OTHER SPECIFIED HEALTH STATUS SNOMED Code(s): 792012425 Comment: Status and Disposition: .
[2018-09-11] MEDS ORDERED: methylPREDNISolone ACETATE 80* 80 MG/ML 1 ML VIAL ONE (09:11)
[2018-09-11] MEDS ORDERED: Iohexol 300* (CONTRAST) 10 ML SDV ONE (09:11)
[2018-09-11] MEDS ORDERED: Lidocaine 1% INJ* 10 MG/ML 30 ML SDV ONE (09:11)
[2018-09-11] MEDS ORDERED: Betamethasone INJ* 6 MG/ML 5 ML VIAL (30 MG) ONE (09:15)
[2018-09-11 12:00] VITALS: BP 140/80
--- NOTE | 2018-09-11 17:21 | DS ---
CC: Dr. Jovel; Mare Marin NP * DISCHARGE SUMMARY: DATE OF ADMISSION: 09/07/18 DATE OF DISCHARGE: 09/11/18 PRIMARY CARE PROVIDER: Mare Marin NP NEUROSURGEON: Dr. Jovel. PAIN MEDICINE DOCTOR: Dr. Reaves. PRINCIPAL DIAGNOSIS: Intractable back pain secondary to probable S1 radiculopathy. SECONDARY DIAGNOSES: 1. History of DVT x2. 2. Gastroesophageal reflux disease. 3. Hypertension. 4. Hyperlipidemia. DISCHARGE MEDICATIONS: 1. Coumadin 5 mg all days of the week except for Friday and , where he takes 2.5 mg. 2. Iron-vitamin C 1 tab p.o. daily. 3. Nexium 20 mg p.o. daily. 4. Amlodipine 5 mg p.o. daily (new dose). 5. Hydrochlorothiazide 12.5 mg p.o. daily. 6. Vitamin D3 1000 units p.o. daily. 7. Pravastatin 40 mg p.o. daily. 8. Latanoprost 1 drop to both eyes daily. 9. Oxycodone 5 to 10 mg p.o. q.4 hours p.r.n. pain. 10. MiraLAX 17 g p.o. daily p.r.n. constipation. 11. Lovenox 80 mg subcutaneous q.12 hours until INR is between 2 and 3. HOSPITAL COURSE: Mr. Alexis is a 73-year-old male who has a history of hypertension, hyperlipidemia and DVT x2 in the past, who presented to the emergency room with complaints of intractable back pain. The patient has a history of lumbar surgery in the past and had done well over the last 7 years; however, developed progressive back pain over the last several weeks. The patient saw Dr. Jovel who recommended outpatient evaluation by pain management. Unfortunately, the patient's back pain progressed to the point where he was unable to get out of bed and came to the emergency room on . The patient was admitted for intractable back pain and probable surgery. The patient, however, was then reevaluated by Dr. Jovel and the decision was made to not pursue surgery. The patient is on Coumadin chronically related to his history of DVTs. With the plan to avoid surgery and still pursue injection, the patient was left off his Coumadin. He had been receiving Lovenox as treatment and prophylaxis while awaiting a plan. Ultimately on 09/11/18, the decision was made to pursue injection. The patient was seen by Dr. Reaves who performed a left S1 transforaminal injection due to concerns for an S1 radiculopathy. The patient states that he is doing well postinjection. He has had no pain since the injection. Overall, he has had improvement in his pain level since arriving to the hospital. At this point, it is felt the patient is stable for discharge home. The patient's blood pressure was noted to be moderately elevated during the course of the hospitalization. Initially, it was felt that this may have been related to uncontrolled pain; however, as this pain improved, he continued to have elevated blood pressure and therefore, his amlodipine dose was increased from 2.5 mg daily to 5 mg daily. In terms of resuming Coumadin, the patient has already done Lovenox injections at home and feels very comfortable with this. He will initiate Lovenox 80 mg subcutaneous twice daily until his INR is therapeutic. The patient checks his INR at home with his own machine and this result is sent to his PCP who will then tell him what to do with his dose of Coumadin. I have asked the patient to check his INR on Friday evening and again Friday evening. He likely will be slow to respond to the Coumadin as his INR was down to 1.07 on the day of discharge and he received 2 doses of vitamin K. I suspect it will take the patient several days to become therapeutic again on his Coumadin. FOLLOWUP CONCERNS: The patient is being discharged home today, 09/11/18. Activity level is as tolerated. Diet is regular. Condition on discharge is stable. The patient should follow up with his PCP in the next 4 to 7 days. The patient will be contacted by the pain clinic with an appointment date and time for followup there and the patient already has an appointment with Dr. Jovel scheduled for 10/07/18. TIME SPENT: Thirty five minutes was spent discharging this patient. [id number] #: [id number] BERNIE
== END 2018-09-11 15:55 | disposition home or self-care (01) | DRG 74 ==
LOC: ED 15:24 → INTOOBSV 18:00 → OBSVTOIN 18:00 → SSU 18:00
PROVIDERS: ADMIT Hospitalist; ATTEND Hospitalist
DX: M54.18 Radiculopathy, sacral and sacrococcygeal region (principal); K21.9 Gastro-esophageal reflux disease without esophagitis; I10 Essential (primary) hypertension; E78.5 Hyperlipidemia, unspecified; N40.0 Benign prostatic hyperplasia without lower urinary tract symptoms; M47.896 Other spondylosis, lumbar region; Z86.718 Personal history of other venous thrombosis and embolism; Z79.01 Long term (current) use of anticoagulants; Z79.899 Other long term (current) drug therapy; Z82.49 Family history of ischemic heart disease and other diseases of the circulatory system; Z83.3 Family history of diabetes mellitus
CPT/HCPCS: 36415; 72100; 72110; 77003; 80053; 83605; 85025; 85610; 86140; 87040; 87077; 87150; 87205; 93005; 99284; A9270-GY; J0702; J1040; J1650; J1885; J2405; J7512